=== PATIENT | male | born 1995 | race Caucasian/White ===

== ENCOUNTER 2017-02-09 13:53 | Emergency (ER) | payer OTHER ==
[~2017-02-09] VITALS: Ht 185.4 cm; Wt 127.3 kg
[2017-02-09 14:06] VITALS: BP 124/78; PULSE 75; RESP 16; O2SAT 97
--- NOTE | 2017-02-09 16:18 | ED.REPORT ---
HPI-Psychiatric Illness Date of Service Feb 09, 2017 ED Provider: Rich Antunez PA-C Raciel is an otherwise healthy 21-year-old male presents emergency Department with a chief complaint of depression. Patient reports he is difficult to depression most of his life, as have many of his family members. He reports worsening over the last 3 months, shortly after the of his daughter. He reports all he wants to do is sleep, he is not interested in engaging with his daughter, does not have any energy. Admits to remote history of suicidal ideation, but states he has not seriously considered killing himself. He denies recent suicidal ideation. Denies thoughts of harming others. He does have access to firearms at home. He denies previous treatment for depression, previous suicide attempts, hospitalizations. He admits to using alcohol approximately once per month, drinking 12-15 beers in a sitting. He denies medical conditions or physical complaints. Patient is hoping to start medication today. Nursing Notes Stated Complaint: DEPRESSION Chief Complaint: Psychiatric Complaint Nursing Notes Reviewed: Yes Allergies: Coded Allergies: No Known Allergies (Unverified , 02/09/17) General Time Seen by MD: 16:01 Chief Complaint Depressed Risk-Psychiatric Illness Suicide Risk Stratification Suicide Risk Factors - Adult: : Access to firearms: Alcohol useNo: Previous attempt, Prior psych admission, Substance abuse RF Statements: Risk factors reviewed Past Medical History Past Medical History Patient denies Review of Systems General: Denies fever, chills, malaise. HEENT: Denies congestion, headache, sore throat. Respiratory: Denies dyspnea, cough, shortness of breath, wheezing. Cardiovascular: Denies chest pain, palpitations. Gastrointestinal: Denies vomiting, diarrhea, abdominal pain. Genitourinary: Denies frequency, urgency, dysuria, hematuria. Otherwise as noted in HPI. Physical Exam General: Well appearing, well developed, well nourished, no acute distress. Head: Atraumatic, normocephalic. No mastoid tenderness. Eyes: No scleral icterus or injection. No discharge. PERRL. Vision grossly intact. Ears: Pinna and tragus nontender with manipulation. External auditory canal patent, atraumatic and without discharge. Tympanic membrane [place], shiny and translucent without fluid, bulging, retraction or perforation. Hearing grossly intact. Nose: Symmetrical, nares patent without discharge. No frontal or maxillary sinus tenderness. Mouth/pharynx: normal dentition, mucus membranes moist. Tonsils 2+ and symmetrical, uvula midline. Pharynx noninjected, no cobblestoning or discharge. Voice clear. Neck: No tenderness or lymphadenopathy. Trachea midline. Respiratory: Regular rate and rhythm. Breath sounds present, clear to auscultation and equal bilaterally. No respiratory distress. No increased work of breathing, speaks in complete sentences. Cardiovascular: Regular rate and rhythm, without murmur, gallop or rub. No pedal edema. Gastrointestinal: Abdomen flat and non-tender without guarding or rebound. Bowel sounds normoactive. Skin: Warm and dry. Neurological: Grossly nonfocal. Cranial nerves: Vision grossly intact, PERRL, EOMI. Facial motion symmetrical, sensation to light touch over forehead, maxilla and mandible present and equal B /L. Voice clear and fluent, no drooling/pooling of saliva, uvula rises midline. Psychological: Alert and oriented. Speech appropriate, linear and logical. Behavior appropriate. Somewhat flat affect. Initial Vital Signs Vital Signs (First) Date Time Temp Pulse Resp B/P Pulse Ox O2 Delivery O2 Flow Rate FiO2 02/09/17 14:06 36.0 75 16 124/78 97 Room Air Normal Re-Eval/Medical Decision Med Decision/Clinical Course Otherwise healthy 21-year-old male presents with chief complaint depression, ongoing most of his life but worse in the last months since the of his daughter. Patient denies a history of suicidal ideation but denies recent, compelling thoughts. He is not previously been treated for depression or hospitalized. He does have guns in the home. He is hoping to be prescribed antidepressants today. Admits to drinking 12-15 beers approximately once per month, denies other drugs. His examination is benign with a normal neurological examination. Patient is disappointed that we do not typically prescribe antidepressants out of the emergency department. When advised that it may take some time to be seen by the social media senior associate, they inquired as to whether perhaps follow-up with primary care tomorrow would be more appropriate. At this time I think is quite reasonable, as the patient appears to be sober, and convincingly denies suicidal intent. He has good support in his . I certainly see no indication to detain him. He has made arrangements for 08Tuesday morning to be seen by his primary care provider. I feel this is reasonable as to he and his . He commits to not harming himself, abstaining from drugs and alcohol, return to emergency department should that change. He agrees to remove his firearms from the home. At this time I feel he is stable and safe to be discharged home. Advised regarding primary care follow-up, provided emergency return precautions. Patient verbalized understanding of, and consent to, the plan. Discharge & Departure Impression: Primary Impression: Depression Depression Type: unspecified Qualified Code: F32.9 - Major depressive disorder, single episode, unspecified )( Condition at Discharge: No danger to self, No danger to others Disposition: Home Discharge Condition All VS Reviewed: Yes Condition: Stable Patient Instructions: Depression (ED) Additional Instructions: Evaluation in the emergency department for depression includes interview and physical examination. These are reassuring that this is unlikely to be caused by a dangerous physical condition. Because he did not wish to wait to me with our social media senior associate, he had suggested being discharged home to follow up with primary care tomorrow. I believe that this is reasonable, under the following conditions: You have assured me that you have no intention of harming yourself or others. You have committed to abstain from drugs or alcohol until further evaluated by your primary care provider. You have committed to return to emergency department should you at any time believe that you are in danger of harming yourself or others. You can do this by calling 911. You can also call the crisis line at [phone]. I highly recommended that you find a safe place to keep your firearms outside of the house until your symptoms improve. Follow-up with your primary care provider as planned, Tuesday at 8:00 in the morning. Return to the emergency department for new or worsening symptoms including a compulsion act on thoughts of harming yourself. Referrals: Bell Almeida (PCP) EDSupervising Provider for APC: Dhruv Waggoner MD copies to: Bell Almeida Seth PA-C Feb 09, 2017 16:18
[2017-02-09 17:01] VITALS: BP 128/84; PULSE 77; RESP 16; O2SAT 98
== END 2017-02-09 17:02 | disposition home or self-care (01) ==
LOC: SED 13:53
DX: F32.9 Major depressive disorder, single episode, unspecified (principal)